=== PATIENT | female | born 1970 | race Caucasian/White ===

== ENCOUNTER 2019-08-16 10:15 | Emergency (ER) | payer MEDICAID ==
[~2019-08-16] VITALS: Ht 160 cm; Wt 118.2 kg
[2019-08-16] MEDS ORDERED: tizanidine 4mg tablet PO STA (11:05)
[2019-08-16] MEDS ORDERED: TIZA4CAP PO (12:40)
[2019-08-16 12:48] VITALS: BP 177/76
== END 2019-08-16 12:51 | disposition home or self-care (01) ==
LOC: ER 10:16
DX: M54.41 Lumbago with sciatica, right side (principal); M46.1 Sacroiliitis, not elsewhere classified; I10 Essential (primary) hypertension; M79.661 Pain in right lower leg; M79.662 Pain in left lower leg; Z79.899 Other long term (current) drug therapy
CPT/HCPCS: 72100; 72220; 99283

== ENCOUNTER 2019-08-28 11:47 | Emergency (ER) | payer MEDICAID ==
[~2019-08-28] VITALS: Ht 160 cm; Wt 122.7 kg
[~2019-08-28 11:47] MED LIST: TIZA4CAP PO
[2019-08-28 12:24] VITALS: BP 164/71
[2019-08-28] MEDS ORDERED: METH-360 PO (13:09)
[2019-08-28] MEDS ORDERED: ketorolac tromethamine 15mg/ml inj. IM ONE (13:10)
[2019-08-28] MEDS ORDERED: orphenadrine citrate 60mg/2ml inj. IM ONE (13:10)
== END 2019-08-28 13:57 | disposition home or self-care (01) ==
LOC: ER 11:48
DX: M54.41 Lumbago with sciatica, right side (principal); I10 Essential (primary) hypertension; G89.29 Other chronic pain; Z98.890 Other specified postprocedural states; Z88.5 Allergy status to narcotic agent; Z79.899 Other long term (current) drug therapy
CPT/HCPCS: 96372; 99283; J1885; J2360

== ENCOUNTER 2020-11-27 06:44 | Emergency (ER) | payer MEDICAID, OTHER ==
[~2020-11-27] VITALS: Ht 160 cm; Wt 127.3 kg
[~2020-11-27 06:44] MED LIST changes: +METH-360 PO
[2020-11-27 06:46] VITALS: BP 198/111
[2020-11-27] MEDS ORDERED: ipratropium/albuterol 3ml nebule NEB ONE (07:10)
--- NOTE | 2020-11-27 07:47 | NUR ---
rt at bedside
[2020-11-27] MEDS ORDERED: ALBU90AE INH (08:02)
[2020-11-27] MEDS ORDERED: PRED20TA PO (08:02)
[2020-11-27] MEDS ORDERED: [UNRECOGNIZED DRUG - CODE] (08:02)
[2020-11-27] MEDS ORDERED: dexamethasone sod phosphate 10mg/ml inj IM STA (09:03)
== END 2020-11-27 09:49 | disposition left against medical advice (07) ==
LOC: ER 06:45
DX: J45.901 Unspecified asthma with (acute) exacerbation (principal); R06.02 Shortness of breath; R07.89 Other chest pain; I10 Essential (primary) hypertension; G89.29 Other chronic pain; Z88.5 Allergy status to narcotic agent; Z79.899 Other long term (current) drug therapy
CPT/HCPCS: 71045; 93005; 94640; 96372; 99283; J1100; 94760

== ENCOUNTER 2021-03-31 19:00 | Emergency (ER) | payer MEDICAID ==
[~2021-03-31] VITALS: Ht 160 cm; Wt 113.6 kg
[~2021-03-31 19:00] MED LIST changes: +ALBU90AE INH; +[UNRECOGNIZED DRUG - CODE]
[2021-03-31 19:27] LABS: BASOPHILS # (AUTO) 0.1 X10'3 (0-0.2); EOSINOPHILS # (AUTO) 0.2 X10'3 (0-0.9); EOSINOPHILS % (AUTO) 1.5 % (0-6); HEMATOCRIT 41.4 % (35.0-45.0); HEMOGLOBIN 14.1 g/dl (12.0-16.0); LYMPHOCYTES # (AUTO) 4.9 X10'3 (1.1-4.8); LYMPHOCYTES % (AUTO) 32.8 % (21-51); MEAN CORPUSCULAR HEMOGLOBIN 29.8 PG (27.0-31.0); MEAN CORPUSCULAR VOLUME 87.8 FL (78-98); MEAN PLATELET VOLUME 9.7 FL (7.4-10.4); MONOCYTES # (AUTO) 1.1 X10'3 (0-0.9); MONOCYTES % (AUTO) 7.3 % (2-12); NEUTROPHILS # (AUTO) 8.6 X10'3 (1.8-7.7); NEUTROPHILS % (AUTO) 57.4 % (42-75); PLATELET COUNT 265 X10'3 (140-440); RED BLOOD COUNT 4.72 X10'6 (4.20-5.60); RED CELL DISTRIBUTION WIDTH 13.1 % (11.5-14.5)
[2021-03-31] MEDS ORDERED: diltiazem 5mg/ml 5ml inj. IV ONE ×2 (19:35→19:40)
[2021-03-31 19:41] LABS: ALANINE AMINOTRANSFERASE 71 U/L (12-78); ALBUMIN 3.6 G/DL (3.4-5.0); ALKALINE PHOSPHATASE 85 IU/L (46-116); ANION GAP 9 (8-16); ASPARTATE AMINO TRANSFERASE 15 U/L (10-37); BILIRUBIN,TOTAL 0.7 MG/DL (0.1-1.0); BLOOD UREA NITROGEN 13 MG/DL (7-18); BUN/CREATININE RATIO 17.1 (6.6-38.0); CHLORIDE 106 MMOL/L (99-107); CREATININE 0.76 MG/DL (0.40-0.90); GLUCOSE 110 MG/DL (70-104); POTASSIUM 3.7 MMOL/L (3.5-5.1); SODIUM 143 MMOL/L (135-145); TOTAL PROTEIN 7.1 G/DL (6.4-8.2); eGFR 81 ML/MIN
[2021-03-31 19:49] LABS: TROPONIN I < 0.04 NG/ML (0.0-0.05)
[2021-03-31] MEDS ORDERED: ibuprofen tablet 400 MG TABLET PO ONE (20:10)
[2021-03-31] MEDS ORDERED: APIX5TAB3 PO (21:01)
[2021-03-31 21:14] VITALS: BP 98/76
== END 2021-03-31 21:16 | disposition home or self-care (01) ==
LOC: ER 19:01
DX: I48.20 Chronic atrial fibrillation, unspecified (principal); R00.2 Palpitations; I10 Essential (primary) hypertension; R06.02 Shortness of breath; R07.89 Other chest pain; G89.29 Other chronic pain; Z98.890 Other specified postprocedural states; Z90.89 Acquired absence of other organs; Z88.5 Allergy status to narcotic agent; Z79.899 Other long term (current) drug therapy
CPT/HCPCS: 36415; 71045; 80053; 83880; 84484; 85025; 93005; 96374; 99285; J3490

== ENCOUNTER 2021-04-13 17:43 | Emergency (ER) | payer MEDICAID ==
[~2021-04-13] VITALS: Ht 160 cm; Wt 113.6 kg
[~2021-04-13 17:43] MED LIST changes: +APIX5TAB3 PO
[2021-04-13] MEDS ORDERED: aspirin 81mg tab.chew PO ONE (18:05)
[2021-04-13] MEDS ORDERED: diltiazem 5mg/ml 5ml inj. IV ONE (18:05)
[2021-04-13 18:49] LABS: BASOPHILS # (AUTO) 0.1 X10'3 (0-0.2); BASOPHILS % (AUTO) 0.7 % (0-1); EOSINOPHILS # (AUTO) 0.2 X10'3 (0-0.9); EOSINOPHILS % (AUTO) 1.4 % (0-6); HEMATOCRIT 38.3 % (35.0-45.0); HEMOGLOBIN 12.9 g/dl (12.0-16.0); LYMPHOCYTES # (AUTO) 4.1 X10'3 (1.1-4.8); LYMPHOCYTES % (AUTO) 29.8 % (21-51); MEAN CORPUSCULAR HEMOGLOBIN 30.3 PG (27.0-31.0); MEAN CORPUSCULAR HGB CONC 33.7 g/dL (33.0-36.5); MEAN CORPUSCULAR VOLUME 89.8 FL (78-98); MEAN PLATELET VOLUME 11.5 FL (7.4-10.4); MONOCYTES % (AUTO) 7.5 % (2-12); NEUTROPHILS # (AUTO) 8.4 X10'3 (1.8-7.7); NEUTROPHILS % (AUTO) 60.6 % (42-75); PLATELET COUNT 226 X10'3 (140-440); RED BLOOD COUNT 4.27 X10'6 (4.20-5.60); WHITE BLOOD COUNT 13.8 X10'3 (4.5-11.0)
[2021-04-13 19:06] LABS: ALANINE AMINOTRANSFERASE 98 U/L (12-78); ALBUMIN 3.5 G/DL (3.4-5.0); ALBUMIN/GLOBULIN RATIO 1.1 (1.1-1.5); ALKALINE PHOSPHATASE 93 IU/L (46-116); ANION GAP 8 (8-16); ASPARTATE AMINO TRANSFERASE 23 U/L (10-37); BILIRUBIN,TOTAL 0.7 MG/DL (0.1-1.0); BLOOD UREA NITROGEN 16 MG/DL (7-18); BUN/CREATININE RATIO 23.5 (6.6-38.0); CALCIUM 8.9 MG/DL (8.5-10.1); CHLORIDE 105 MMOL/L (99-107); CREATININE 0.68 MG/DL (0.40-0.90); GLUCOSE 96 MG/DL (70-104); POTASSIUM 3.8 MMOL/L (3.5-5.1); SODIUM 141 MMOL/L (135-145); TOTAL CARBON DIOXIDE 28.1 MMOL/L (24-32); TOTAL PROTEIN 6.8 G/DL (6.4-8.2); eGFR > 90 ML/MIN
[2021-04-13 19:14] LABS: MAGNESIUM 1.9 MG/DL (1.5-2.4); TROPONIN I < 0.04 NG/ML (0.0-0.05)
--- NOTE | 2021-04-13 19:19 | NUR ---
DRAPERY INSPECTOR AT BEDSIDE AND PT REPORTS SHE IS SCHEDULED TO HAVE PLANNED CARDIOVERSION ON MONDAY DR. VERDUGO AT [facility].
[2021-04-13] MEDS ORDERED: diltiazem 30mg tablet PO ONE (20:05)
[2021-04-13 22:07] VITALS: BP 103/70
== END 2021-04-13 22:30 | disposition home or self-care (01) ==
LOC: ER 17:43
DX: I48.20 Chronic atrial fibrillation, unspecified (principal); R06.02 Shortness of breath; R07.89 Other chest pain; I10 Essential (primary) hypertension; G89.29 Other chronic pain; Z90.89 Acquired absence of other organs; Z98.890 Other specified postprocedural states; Z88.5 Allergy status to narcotic agent; Z79.899 Other long term (current) drug therapy
CPT/HCPCS: 36415; 71045; 80053; 83735; 83880; 84443; 84484; 85025; 93005; 96374; 99285; J3490

== ENCOUNTER 2021-05-02 16:00 | Emergency (ER) | payer MEDICAID | END 2021-05-02 19:15 | disposition left against medical advice (07) | LOC: ER 16:01 | DX: R07.89 Other chest pain (principal); Z53.21 Procedure and treatment not carried out due to patient leaving prior to being seen by health care provider | CPT/HCPCS: 93005 ==

== ENCOUNTER 2021-05-14 14:30 | Emergency (ER) | payer MEDICAID ==
[~2021-05-14] VITALS: Ht 160 cm; Wt 108.2 kg
[2021-05-14 14:39] VITALS: BP 133/82
[2021-05-14 16:04] LABS: BASOPHILS # (AUTO) 0.1 X10'3 (0-0.2); BASOPHILS % (AUTO) 0.7 % (0-1); EOSINOPHILS # (AUTO) 0.1 X10'3 (0-0.9); EOSINOPHILS % (AUTO) 1.3 % (0-6); HEMATOCRIT 38.8 % (35.0-45.0); HEMOGLOBIN 13.4 g/dl (12.0-16.0); LYMPHOCYTES # (AUTO) 3.2 X10'3 (1.1-4.8); LYMPHOCYTES % (AUTO) 31.8 % (21-51); MEAN CORPUSCULAR HEMOGLOBIN 31.1 PG (27.0-31.0); MEAN CORPUSCULAR HGB CONC 34.6 g/dL (33.0-36.5); MEAN CORPUSCULAR VOLUME 89.9 FL (78-98); MEAN PLATELET VOLUME 10.9 FL (7.4-10.4); MONOCYTES # (AUTO) 0.6 X10'3 (0-0.9); MONOCYTES % (AUTO) 6.2 % (2-12); PLATELET COUNT 225 X10'3 (140-440); RED BLOOD COUNT 4.32 X10'6 (4.20-5.60)
[2021-05-14 16:19] LABS: ALANINE AMINOTRANSFERASE 95 U/L (12-78); ALBUMIN 3.7 G/DL (3.4-5.0); ALKALINE PHOSPHATASE 92 IU/L (46-116); ANION GAP 9 (8-16); ASPARTATE AMINO TRANSFERASE 20 U/L (10-37); BILIRUBIN,TOTAL 0.5 MG/DL (0.1-1.0); BLOOD UREA NITROGEN 12 MG/DL (7-18); BUN/CREATININE RATIO 20.7 (6.6-38.0); CALCIUM 8.9 MG/DL (8.5-10.1); CHLORIDE 104 MMOL/L (99-107); CREATININE 0.58 MG/DL (0.40-0.90); GLUCOSE 93 MG/DL (70-104); POTASSIUM 3.6 MMOL/L (3.5-5.1); SODIUM 139 MMOL/L (135-145); TOTAL CARBON DIOXIDE 25.7 MMOL/L (24-32); TOTAL PROTEIN 7.3 G/DL (6.4-8.2); eGFR > 90 ML/MIN
== END 2021-05-14 20:07 | disposition left against medical advice (07) ==
LOC: ER 14:31
DX: R07.89 Other chest pain (principal); Z53.21 Procedure and treatment not carried out due to patient leaving prior to being seen by health care provider
CPT/HCPCS: 71045; 80053; 83880; 84484; 85025; 93005

== ENCOUNTER 2023-12-23 03:58 | Emergency (ER) | payer MEDICAID ==
[~2023-12-23] VITALS: Ht 160 cm; Wt 87.5 kg
[~2023-12-23 03:58] MED LIST changes: +PANT-47 PO
[2023-12-23 04:19] VITALS: TEMP 98.5
[2023-12-23] MEDS ORDERED: AMOX500C2 PO (05:09)
[2023-12-23] MEDS: ibuprofen tablet 400 MG TABLET PO ONE (05:17)
[2023-12-23] MEDS: amoxicillin 250mg capsule PO ONE (05:17)
[2023-12-23] MEDS ORDERED: ONDA8TAB13 PO (05:23)
[2023-12-23 05:25] VITALS: BP 132/80; PULSE 71; RESP 18; O2SAT 99
== END 2023-12-23 05:28 | disposition home or self-care (01) ==
LOC: ER 03:59
DX: K08.89 Other specified disorders of teeth and supporting structures (principal); H66.92 Otitis media, unspecified, left ear; I10 Essential (primary) hypertension; I48.91 Unspecified atrial fibrillation; F10.10 Alcohol abuse, uncomplicated; Z98.890 Other specified postprocedural states; Z88.5 Allergy status to narcotic agent; Z79.899 Other long term (current) drug therapy; Y90.9 Presence of alcohol in blood, level not specified
CPT/HCPCS: 99283

== ENCOUNTER → 2024-02-08 | Outpatient (CLI) | payer MEDICAID ==
[2024-02-08] VITALS (21 sets, daily range): BP systolic 97–136; BP diastolic 38–87; PULSE 68–88
[~2024-02-08] MED LIST changes: +ONDA8TAB13 PO
== END | disposition home or self-care (01) ==
LOC: CARD DIAG 12:47
PROVIDERS: ATTEND Physician Assistant
DX: I48.0 Paroxysmal atrial fibrillation (principal); R55 Syncope and collapse
CPT/HCPCS: 93660